=== PATIENT | male | born 1960 | race Caucasian/White ===

== ENCOUNTER 2017-12-23 14:55 | Outpatient (CLI) | payer BC ==
--- NOTE | 2017-12-23 23:42 | XRay Report ---
FINAL REPORT PROCEDURE: Right hand. TECHNIQUE: Four views. HISTORY: RIGHT HAND PAIN COMPARISON: No prior studies are available for comparison. FINDINGS: There is a transverse, slightly comminuted fracture through the distal half of the distal phalanx of the middle finger. There is mild dorsal displacement of fracture fragments. There is mild dorsal angulation. The remaining bones appear intact. The joint spaces appear normal. The soft tissues are unremarkable. IMPRESSION: Fracture of the distal phalanx of the middle finger.
== END 2017-12-23 14:56 | disposition home or self-care (01) ==
LOC: SPVIMAG 14:55
PROVIDERS: ATTEND Orthopaedic Surgery Sports Medicine
DX: S62.632A Displaced fracture of distal phalanx of right middle finger, initial encounter for closed fracture (principal); X58.XXXA Exposure to other specified factors, initial encounter; Y93.89 Activity, other specified; Y92.89 Other specified places as the place of occurrence of the external cause; Y99.8 Other external cause status